=== PATIENT | male | born 1955 | race Caucasian/White ===

== ENCOUNTER 2017-09-20 15:01 | Inpatient (IN) | payer MEDICARE, OTHER ==
[~2017-09-20] VITALS: Ht 167.6 cm; Wt 90.7 kg
--- NOTE | 2017-09-20 15:28 | NUR ---
PT IS MEDICALLY CLEARED BY DR LACKEY.
[2017-09-20] MEDS ORDERED: ABILIFY (15:34)
[2017-09-20] MEDS ORDERED: THORAZINE (15:34)
[2017-09-20] MEDS ORDERED: METF500T4 PO (15:34)
[2017-09-20] MEDS ORDERED: LORA2TAB PO (15:34)
[2017-09-20] MEDS ORDERED: SINEMET PO (15:34)
--- NOTE | 2017-09-20 16:08 | NUR ---
Pt c/o having hallucinations, Dr Matta made aware and orders recieved.
[2017-09-20] MEDS ORDERED: HALOPERIDOL LACTATE 5 MG/1 ML VIAL IM ONE (16:15)
[2017-09-20] MEDS ORDERED: LORAZEPAM 2 MG/1 ML VIAL IM ONE (16:15)
[2017-09-20] MEDS ORDERED: HALOPERIDOL LACTATE 5 MG/1 ML VIAL ONE (16:25)
[2017-09-20] MEDS ORDERED: LORAZEPAM 2 MG/1 ML VIAL ONE (16:26)
--- NOTE | 2017-09-20 17:00 | NUR ---
Patient is resting comfortably in bed with eyes closed, NAD noted.
--- NOTE | 2017-09-20 18:04 | NUR ---
Pt transfered to [facility] via [facility].
[2017-09-20] MEDS ORDERED: MAG HYDROX/AL HYDROX/SIMETH 30 ML LIQUID UDC PO PRN (19:15)
[2017-09-20] MEDS ORDERED: MAGNESIUM HYDROXIDE 30 ML LIQUID UDC PO PRN (19:15)
[2017-09-20] MEDS ORDERED: DEXTROSE 50% 50 ML DISP.SYRIN IV PRN (20:00)
[2017-09-20] MEDS: BLOOD SUGAR DIAGNOSTIC 1 EACH STRIP VI SCH (20:35)
[2017-09-20 21:24] VITALS: BP 100/46
[2017-09-20] MEDS: CARBIDOPA/LEVODOPA 25-100MG TABLET PO SCH (21:48)
--- NOTE | 2017-09-20 22:00 | NUR ---
RECEIVED PATIENT IN HIS ROOM, HE WAS NOTED A/O X 2. DEPRESSED MOOD, BLUNTED AFFECT, HAVING FLIGH OF IDEAS. HE IS ABLE TO AMBULATE WITH STEADY GAIT AND ABLE TO MAKE HIS NEEDS KNOW. MEDICATION WERE RECONCILE. HE IS COMPLIANT WITH MEDICATION REGIMENT AT THIS TIME. UPON INTERVIEW, HE STATED THAT HE CONTINUE HAVING SI, HOWEVER, DENIES ANY SPECIFIC PLAN. HE STATED TO THIS PEDIATRIC ONCOLOGIST. "IF YOU HAVE AN INJECTION THAT YOU COULD GIVE ME AND PUT ME TO SLEEP FOREVER I COULD TAKE NOW". PATIENT WAS ABLE TO CONTRACT FOR SAFETY. PT STATED THAT HE SMOKES CIGARETTES, APPROX 5 CIGARETTES PER DAY. NICOTINE PATCH WAS ADDED TO HIS MEDICATION REGIMENT. SAFETY WAS EMPHASIS. WILL CONTINUE TO MONITOR CLOSELY Addendum: 09/21/17 at 0238 by KUSH BOATENG RN PATIENT ALSO STATED THAT HIS LAST ALCOHOLIC DRINK WAS THREE DAYS AGO. WILL CONTINUE TO MONITOR FOR ETOH WITHDRAWS SXS.
[2017-09-20] MEDS: INSULIN REGULAR, HUMAN 300 UNIT/3 ML VIAL SQ PRN (22:05)
--- NOTE | 2017-09-21 00:50 | NUR ---
PATIENT WOKE UP REQUESTING SOMETHING TO EAT AND DRINK. WATER, DIET SUGAR FREE JUICE, AND A TURKEY SANDWICH WAS GIVEN. HE WAS ALSO NOTED MILDLY AGITATIVE. ATIVAN 0.5MG PO PRN WAS GIVEN. WILL CONTINUE TO MONITOR CLOSELY.
[2017-09-21] MEDS: LORAZEPAM 0.5 MG TABLET PO PRN ×4 (00:52→20:19)
[2017-09-21] MEDS: TEMAZEPAM 7.5 MG CAPSULE PO PRN ×2 (01:53→21:42)
[2017-09-21] MEDS: ACETAMINOPHEN 325 MG TABLET PO PRN (01:54)
--- NOTE | 2017-09-21 01:55 | NUR ---
PATIENT WOKE UP STATING THAT HE WAS UNABLE TO SLEEP. TEMAZEPAM 7.5 MG PO PRN WAS GIVEN FOR INSOMNIA WITH TYLENOL 650 MG PO PRN FOR MILD GENERALIZED PAIN. WILL CONTINUE TO MONITOR.
--- NOTE | 2017-09-21 06:04 | NUR ---
PT VERBALIZED TO THE PHYSICAL THERAPY MANAGER WHILE BEING ASSISTED WITH MORNING SHOWER, THAT HE IS A DRUG ADDICT; THAT HE USES CRYSTAL METH, HEROINE AND ALCOHOL, UNSURE THE LAST TIME HE DRANK, MAYBE THREE DAYS AGO, WILL CONTINUE TO MONITOR PT CLOSELY FOR WITHDRAWAL SYMPTOMS.
[2017-09-21] MEDS: BLOOD SUGAR DIAGNOSTIC 1 EACH STRIP VI SCH ×4 (07:00→20:53)
[2017-09-21] MEDS: CARBIDOPA/LEVODOPA 25-100MG TABLET PO SCH ×2 (08:09→18:02)
[2017-09-21] MEDS: METFORMIN HCL 500 MG TABLET PO SCH ×2 (08:09→18:01)
[2017-09-21 08:15] LABS: BASOPHILS % (AUTO) 0.4 % (0.0-2.0); EOSINOPHILS # (AUTO) 0.1 K/uL (0.0-0.7); EOSINOPHILS % (AUTO) 1.3 % (0.0-7.0); HEMATOCRIT 41.4 % (36.7-47.1); HEMOGLOBIN 14.2 g/dL (12.5-16.3); LYMPHOCYTES # (AUTO) 1.9 K/uL (20.0-40.0); MEAN CORPUSCULAR HEMOGLOBIN 31.7 uug (23.8-33.4); MEAN CORPUSCULAR HGB CONC 34 g/dL (32.5-36.3); MEAN CORPUSCULAR VOLUME 92.3 fL (73.0-96.2); MONOCYTES # (AUTO) 0.4 K/uL (2.0-10.0); MONOCYTES % (AUTO) 5.5 % (0.0-11.0); NEUTROPHILS # (AUTO) 4.8 K/uL (1.8-8.9); NEUTROPHILS % (AUTO) 66.8 % (38.5-71.5); PLATELET COUNT (AUTO) 219 K/uL (152-348); RED BLOOD CELL COUNT(AUTO) 4.49 MIL/uL (4.06-5.63); WHITE BLOOD COUNT (AUTO) 7.1 K/uL (3.6-10.2)
[2017-09-21 08:28] VITALS: BP 142/62
[2017-09-21 08:35] LABS: THYROID STIMULATING HORMONE 0.952 mIU/mL (0.358-3.740)
[2017-09-21 08:53] LABS: BILIRUBIN,TOTAL 0.3 mg/dL (0.2-1.0); CREATININE 0.7 mg/dL (0.6-1.3); PHOSPHOROUS 3.2 mg/dL (2.5-4.9); POTASSIUM 3.9 mmol/L (3.5-5.1); TOTAL PROTEIN, SERUM 7.2 g/dL (6.4-8.2)
[2017-09-21 10:50] LABS: *BILIRUBIN,URIN NEGATIVE (NEGATIVE); *BLOOD, URINE NEGATIVE (NEGATIVE); *CLARITY,URINE CLEAR (CLEAR); *COLOR,URINE YELLOW (YELLOW); *KETONES,URINE NEGATIVE (NEGATIVE); *PROTEIN,URINE NEGATIVE (NEGATIVE); *UROBILINOGEN,URINE 0.2 E.U./dl (NORMAL); LEUKOCYTE ESTERASE ,URINE NEGATIVE (NEGATIVE); NITRITE, URINE NEGATIVE (NEGATIVE); UGLUCOSE NEGATIVE (NEGATIVE)
[2017-09-21 11:00] LABS: BACTERIA,URINE FEW /HPF (NONE SEEN); RBC,URINE 0-3 /HPF (0-3); SQUAMOUS EPITHELIAL CELL,UR FEW /HPF (NONE SEEN)
--- NOTE | 2017-09-21 12:04 | NUR ---
Initial DC Plan: Per patient, he ran away from his convalescent home and is now homeless. Patient stated he would like assistance finding a new SNF. SW will follow up with MD, patient, and patient's brother Watson [[phone]] to discuss most appropriate discharge plans. SW will form a safe and proper discharge.
--- NOTE | 2017-09-21 12:07 | NUR ---
Firearms Reporting: LUCIANA submitted Mental Health report to [facility] on 09/21.
[2017-09-21] MEDS: INSULIN REGULAR, HUMAN 300 UNIT/3 ML VIAL SQ PRN ×2 (13:44→20:55)
[2017-09-21] MEDS ORDERED: INFLUENZA VACCINE 2017-2018 0.5 ML DISP.SYRIN IM ONE (14:00)
[2017-09-21] MEDS: ARIPIPRAZOLE 5 MG TABLET PO SCH (14:48)
[2017-09-21] MEDS: chlorproMAZINE 25 MG TABLET PO SCH ×2 (14:48→18:02)
[2017-09-21 15:16] VITALS: BP 136/64
[2017-09-21] MEDS ORDERED: MAGNESIUM HYDROXIDE 30 ML LIQUID UDC PO PRN (17:00)
[2017-09-21] MEDS: THIAMINE HCL 100 MG TABLET PO SCH (17:00)
[2017-09-21] MEDS: FOLIC ACID 1 MG TABLET PO SCH (18:01)
[2017-09-21] MEDS: CEPHALEXIN MONOHYDRATE 500 MG CAPSULE PO SCH ×2 (18:01→21:31)
[2017-09-21] MEDS: DOCUSATE SODIUM 100 MG CAPSULE PO SCH ×2 (18:01→20:19)
[2017-09-21] MEDS: HYDROCODONE/APAP 5-325MG TABLET PO PRN (18:02)
[2017-09-21] MEDS: MULTIVITAMINS,THERAPEUTIC TABLET PO SCH (18:08)
--- NOTE | 2017-09-21 18:31 | NUR ---
Gps/Residential Instructor- patient kept asking for more foods, 1/2 of sandwich was given but kept askinfg for crakers, juice, more foods claimed still hungry. reviewed diet , informed needed to watch his blood sugar.
--- NOTE | 2017-09-21 20:25 | NUR ---
gps/journalists and other writers: patient angry chasing staff using rude language. ativan 0.5 mg po given.
--- NOTE | 2017-09-21 21:16 | NUR ---
GPS/NSG Patient first observed in activity room with hostile demeanor, patient requesting food every five minutes for the first hour of begining of shift. Patient approached by nurse to attempt to explain we must first follow diabetic protocol, obtain a blood sugar reading and then a snack would be provided, patient became angry and began to call nurse names, and inappropriate remarks were made towards staff. Patient redirected however patient remained angry. Will continue to monitor for behavior escalation and safety for patient, staff and peers.
[2017-09-22] MEDS: LORAZEPAM 0.5 MG TABLET PO PRN ×3 (02:36→14:51)
[2017-09-22] MEDS: HYDROCODONE/APAP 5-325MG TABLET PO PRN ×2 (02:37→23:15)
[2017-09-22] MEDS: CEPHALEXIN MONOHYDRATE 500 MG CAPSULE PO SCH ×3 (06:14→21:28)
[2017-09-22] MEDS: BLOOD SUGAR DIAGNOSTIC 1 EACH STRIP VI SCH ×4 (06:32→20:12)
--- NOTE | 2017-09-22 06:47 | NUR ---
GPS: REMAIN UNCOOPERATIVE WITH MEDICATIONS. STATED I DON'T WANT TAKE ANY PSYCH MEDICATIONS. BLOOD SUGAR 141 MG/DL THIS MORNING.COMPLIANT WITH AM PO MEDICATION. SLEPT 7 HRS THROUGH THE NIGHT AFTER RESTORIL 7.5 MG PO GIVEN.RESTING IN BED COMFORTABLY.
[2017-09-22 07:30] VITALS: BP 150/85
--- NOTE | 2017-09-22 07:35 | NUR ---
pt received in the tv room watching tv ,v/s are stable upon approach pt is nice ,no c/o pain at this time,breakfast served,
[2017-09-22] MEDS: INSULIN REGULAR, HUMAN 300 UNIT/3 ML VIAL SQ PRN ×4 (07:40→20:14)
[2017-09-22] MEDS: METFORMIN HCL 500 MG TABLET PO SCH ×2 (07:49→15:49)
[2017-09-22] MEDS: FOLIC ACID 1 MG TABLET PO SCH (08:00)
[2017-09-22] MEDS: CARBIDOPA/LEVODOPA 25-100MG TABLET PO SCH ×2 (08:00→16:02)
[2017-09-22] MEDS: THIAMINE HCL 100 MG TABLET PO SCH (08:00)
[2017-09-22] MEDS: DOCUSATE SODIUM 100 MG CAPSULE PO SCH ×2 (08:00→20:06)
[2017-09-22] MEDS: MULTIVITAMINS,THERAPEUTIC TABLET PO SCH (08:00)
[2017-09-22] MEDS: chlorproMAZINE 25 MG TABLET PO SCH (08:01)
[2017-09-22] MEDS: ARIPIPRAZOLE 5 MG TABLET PO SCH (08:01)
--- NOTE | 2017-09-22 09:20 | NUR ---
PT IS GETTING ANXIOUS ATIVAN 0.5 MG PO GIVEN PER MD ORDERS.
[2017-09-22] MEDS: OLANZAPINE 5 MG TABLET PO SCH (10:31)
[2017-09-22] MEDS: NICOTINE 14 MG/24HR PATCH TD SCH (10:49)
[2017-09-22] MEDS: AMLODIPINE 5 MG TABLET PO SCH (11:12)
--- NOTE | 2017-09-22 15:00 | NUR ---
PT REQUEST ATIVAN HE SAID HE IS FEELING ANXIOUS ,PER MD ORDERS ATIVAN 0.5 MG PO GIVEN.
[2017-09-22 15:28] VITALS: BP 136/80
[2017-09-22 20:00] VITALS: BP 132/83
[2017-09-22] MEDS: TEMAZEPAM 7.5 MG CAPSULE PO PRN (21:36)
--- NOTE | 2017-09-22 21:36 | NUR ---
GPS: PATIENT C/O INSOMNIA. RESTORIL 7.5 MG PO GIVEN.
--- NOTE | 2017-09-22 22:37 | NUR ---
GPS: PATIENT SLEEPING EYE CLOSE PRN EFFECTIVE.
--- NOTE | 2017-09-22 23:15 | NUR ---
GPS: PATIENT C/O BACK PAIN. NORCO 3/325 MG 1 TAB PO GIVEN.
--- NOTE | 2017-09-23 00:16 | NUR ---
GPS: PATIENT STATED I AM FEELING BETTER NOW. PRN FOR PAIN EFFECTIVE.
[2017-09-23] MEDS: CEPHALEXIN MONOHYDRATE 500 MG CAPSULE PO SCH ×3 (06:00→22:11)
--- NOTE | 2017-09-23 06:28 | NUR ---
GPS: REMAIN CALM AND COOPERATIVE WITH MEDICATIONS AND CARE. SHOWERED THIS MORNING. SLEPT 7 HRS THROUGH THE NIGHT AFTER RESTORIL 7.5 MG PO GIVEN. RESTING IN HIS ROOM COMFORTABLY.CONTINUE PLAN OF CARE.
[2017-09-23] MEDS: BLOOD SUGAR DIAGNOSTIC 1 EACH STRIP VI SCH ×4 (06:36→20:58)
[2017-09-23] MEDS: HYDROCODONE/APAP 5-325MG TABLET PO PRN ×4 (07:06→22:13)
[2017-09-23 07:30] VITALS: BP 115/79
[2017-09-23] MEDS: INSULIN REGULAR, HUMAN 300 UNIT/3 ML VIAL SQ PRN ×4 (08:12→22:18)
[2017-09-23] MEDS: NICOTINE 14 MG/24HR PATCH TD SCH (09:09)
[2017-09-23] MEDS: THIAMINE HCL 100 MG TABLET PO SCH (09:09)
[2017-09-23] MEDS: CARBIDOPA/LEVODOPA 25-100MG TABLET PO SCH ×2 (09:09→16:32)
[2017-09-23] MEDS: FOLIC ACID 1 MG TABLET PO SCH (09:10)
[2017-09-23] MEDS: OLANZAPINE 5 MG TABLET PO SCH (09:10)
[2017-09-23] MEDS: DOCUSATE SODIUM 100 MG CAPSULE PO SCH ×2 (09:10→19:59)
[2017-09-23] MEDS: AMLODIPINE 5 MG TABLET PO SCH (09:11)
[2017-09-23] MEDS: MULTIVITAMINS,THERAPEUTIC TABLET PO SCH (09:11)
[2017-09-23] MEDS: METFORMIN HCL 500 MG TABLET PO SCH ×2 (09:13→16:32)
[2017-09-23] MEDS: LORAZEPAM 0.5 MG TABLET PO PRN ×2 (11:36→16:59)
[2017-09-23 16:00] VITALS: BP 162/90
[2017-09-23] MEDS: ACETAMINOPHEN 325 MG TABLET PO PRN (19:59)
[2017-09-23 20:35] VITALS: BP 157/90
[2017-09-23] MEDS: TEMAZEPAM 7.5 MG CAPSULE PO PRN (22:13)
[2017-09-24] MEDS: LORAZEPAM 0.5 MG TABLET PO PRN ×3 (01:19→18:15)
[2017-09-24] MEDS: CEPHALEXIN MONOHYDRATE 500 MG CAPSULE PO SCH ×3 (06:12→21:36)
[2017-09-24] MEDS: BLOOD SUGAR DIAGNOSTIC 1 EACH STRIP VI SCH ×4 (06:41→20:14)
[2017-09-24 07:30] VITALS: BP 135/65
[2017-09-24 07:45] LABS: ALANINE AMINOTRANSFERASE 19 U/L (16-63); ALKALINE PHOSPHATASE 70 U/L (50-136); ASPARTATE AMINOTRANSFERASE 10 U/L (15-37); BILIRUBIN,TOTAL 0.5 mg/dL (0.2-1.0); CARBON DIOXIDE 23 mmol/L (21-32); CHLORIDE 103 mmol/L (98-107); CREATININE 0.6 mg/dL (0.6-1.3); GLUCOSE 136 mg/dL (74-106); MAGNESIUM 1.9 mg/dL (1.8-2.4); PHOSPHOROUS 4.1 mg/dL (2.5-4.9); POTASSIUM 3.8 mmol/L (3.5-5.1); TOTAL PROTEIN, SERUM 6.8 g/dL (6.4-8.2); UREA NITROGEN, BLOOD 12 mg/dL (7-18)
[2017-09-24 07:52] LABS: BASOPHILS % (AUTO) 0.5 % (0.0-2.0); EOSINOPHILS # (AUTO) 0.3 K/uL (0.0-0.7); EOSINOPHILS % (AUTO) 4.2 % (0.0-7.0); HEMATOCRIT 40.8 % (36.7-47.1); HEMOGLOBIN 13.8 g/dL (12.5-16.3); LYMPHOCYTES # (AUTO) 1.2 K/uL (20.0-40.0); LYMPHOCYTES % (AUTO) 18.3 % (20.5-51.5); MEAN CORPUSCULAR HEMOGLOBIN 31.3 uug (23.8-33.4); MEAN CORPUSCULAR HGB CONC 34 g/dL (32.5-36.3); MEAN CORPUSCULAR VOLUME 92.4 fL (73.0-96.2); MONOCYTES # (AUTO) 0.5 K/uL (2.0-10.0); MONOCYTES % (AUTO) 7.7 % (0.0-11.0); NEUTROPHILS # (AUTO) 4.6 K/uL (1.8-8.9); NEUTROPHILS % (AUTO) 69.3 % (38.5-71.5); PLATELET COUNT (AUTO) 191 K/uL (152-348); RED BLOOD CELL COUNT(AUTO) 4.42 MIL/uL (4.06-5.63); WHITE BLOOD COUNT (AUTO) 6.7 K/uL (3.6-10.2)
[2017-09-24] MEDS: CARBIDOPA/LEVODOPA 25-100MG TABLET PO SCH ×2 (08:08→17:04)
[2017-09-24] MEDS: DOCUSATE SODIUM 100 MG CAPSULE PO SCH ×2 (08:08→20:14)
[2017-09-24] MEDS: OLANZAPINE 5 MG TABLET PO SCH (08:08)
[2017-09-24] MEDS: MULTIVITAMINS,THERAPEUTIC TABLET PO SCH (08:08)
[2017-09-24] MEDS: FOLIC ACID 1 MG TABLET PO SCH (08:08)
[2017-09-24] MEDS: METFORMIN HCL 500 MG TABLET PO SCH ×2 (08:08→17:04)
[2017-09-24] MEDS: NICOTINE 14 MG/24HR PATCH TD SCH (08:08)
[2017-09-24] MEDS: AMLODIPINE 5 MG TABLET PO SCH ×2 (08:12→20:15)
[2017-09-24] MEDS: HYDROCODONE/APAP 5-325MG TABLET PO PRN ×3 (08:13→23:07)
[2017-09-24] MEDS: THIAMINE HCL 100 MG TABLET PO SCH (08:13)
[2017-09-24] MEDS: INSULIN REGULAR, HUMAN 300 UNIT/3 ML VIAL SQ PRN ×3 (11:58→20:21)
[2017-09-24] MEDS: ACETAMINOPHEN 325 MG TABLET PO PRN ×2 (12:15→20:14)
[2017-09-24 15:51] VITALS: BP 104/70
[2017-09-24] MEDS: METFORMIN HCL 850 MG TABLET PO SCH (17:08)
[2017-09-24 20:00] VITALS: BP 137/62
[2017-09-24] MEDS: TEMAZEPAM 7.5 MG CAPSULE PO PRN (21:36)
[2017-09-25] MEDS: LORAZEPAM 0.5 MG TABLET PO PRN ×3 (02:24→23:19)
[2017-09-25] MEDS: CEPHALEXIN MONOHYDRATE 500 MG CAPSULE PO SCH ×3 (05:29→22:05)
[2017-09-25] MEDS: HYDROCODONE/APAP 5-325MG TABLET PO PRN ×3 (05:30→23:45)
[2017-09-25] MEDS: BLOOD SUGAR DIAGNOSTIC 1 EACH STRIP VI SCH ×4 (06:35→20:21)
[2017-09-25 07:30] VITALS: BP 125/74
[2017-09-25] MEDS: AMLODIPINE 5 MG TABLET PO SCH ×2 (08:10→20:15)
[2017-09-25] MEDS: FOLIC ACID 1 MG TABLET PO SCH (08:11)
[2017-09-25] MEDS: THIAMINE HCL 100 MG TABLET PO SCH (08:11)
[2017-09-25] MEDS: MULTIVITAMINS,THERAPEUTIC TABLET PO SCH (08:11)
[2017-09-25] MEDS: DOCUSATE SODIUM 100 MG CAPSULE PO SCH ×2 (08:11→20:15)
[2017-09-25] MEDS: OLANZAPINE 5 MG TABLET PO SCH ×2 (08:12→20:15)
[2017-09-25] MEDS: NICOTINE 14 MG/24HR PATCH TD SCH (08:12)
--- NOTE | 2017-09-25 08:15 | NUR ---
Discharge Planning Note: Patient stated he does not want anyone contacting his family. SW will continue to follow up with patient to discuss discharge plans.
[2017-09-25] MEDS: METFORMIN HCL 850 MG TABLET PO SCH ×2 (08:23→16:52)
[2017-09-25] MEDS: CARBIDOPA/LEVODOPA 25-100MG TABLET PO SCH ×3 (08:24→17:05)
[2017-09-25] MEDS: INSULIN REGULAR, HUMAN 300 UNIT/3 ML VIAL SQ PRN ×3 (12:00→20:43)
[2017-09-25 17:21] VITALS: BP_SYST 102; BP_SYST 127; BP_DIAS 56; BP_DIAS 76
[2017-09-25 20:07] VITALS: BP 121/73
--- NOTE | 2017-09-25 21:57 | NUR ---
Patient received in activities room watching t.v. interacting with peers.Patient pleasant upon approach. Patient is unpredictable can be needy and demanding wanting instant gratification. Patient complaint with medication, accucheck 198 with sliding scale coverage given as ordered. Will continue with current treatment plan.
[2017-09-25] MEDS: TEMAZEPAM 7.5 MG CAPSULE PO PRN (22:05)
[2017-09-26] MEDS: CEPHALEXIN MONOHYDRATE 500 MG CAPSULE PO SCH ×3 (06:19→21:49)
[2017-09-26] MEDS: BLOOD SUGAR DIAGNOSTIC 1 EACH STRIP VI SCH ×4 (06:41→20:23)
[2017-09-26 08:00] VITALS: BP 146/76
[2017-09-26] MEDS: MULTIVITAMINS,THERAPEUTIC TABLET PO SCH (08:38)
[2017-09-26] MEDS: FOLIC ACID 1 MG TABLET PO SCH (08:38)
[2017-09-26] MEDS: CARBIDOPA/LEVODOPA 25-100MG TABLET PO SCH ×3 (08:38→16:38)
[2017-09-26] MEDS: DOCUSATE SODIUM 100 MG CAPSULE PO SCH ×2 (08:38→20:18)
[2017-09-26] MEDS: OLANZAPINE 5 MG TABLET PO SCH ×2 (08:39→20:18)
[2017-09-26] MEDS: NICOTINE 14 MG/24HR PATCH TD SCH (08:39)
[2017-09-26] MEDS: THIAMINE HCL 100 MG TABLET PO SCH (08:39)
[2017-09-26] MEDS: METFORMIN HCL 850 MG TABLET PO SCH ×2 (08:39→17:01)
[2017-09-26] MEDS: AMLODIPINE 5 MG TABLET PO SCH ×2 (08:39→20:18)
[2017-09-26] MEDS: HYDROCODONE/APAP 5-325MG TABLET PO PRN ×3 (09:08→23:44)
--- NOTE | 2017-09-26 09:10 | NUR ---
PATIENT REQUESTED FOR NORCO FOR GENERALISED PAIN MEDICATED ORDERED AND WILL CONTINUE TO OBSERVE.
--- NOTE | 2017-09-26 11:07 | NUR ---
Supportability Engineer Group Note: S: "I'm just gonna take it day by day and enjoy the sunlight." O: Pt dominated the session, but was able to be redirected. He made intense eye contact while speaking. Pt had lively, rapid, intense speech with a tangential thought process. Pt had insight into his diagnosis, but less insight into his culpability of his actions. A: Though pt states no present SI, pt could not articulate a plan to keep himself safe. Pt should explore coping skills when when he feels isolated or depressed. P: Attend group again the following day and utilize referrals for outpatient support.
[2017-09-26] MEDS: INSULIN REGULAR, HUMAN 300 UNIT/3 ML VIAL SQ PRN ×3 (11:44→20:42)
[2017-09-26 15:45] VITALS: BP 137/78
--- NOTE | 2017-09-26 18:00 | NUR ---
REMAIN ON PAIN MANAGEMENT ORDERED AND HELPFUL COMPLIANT WITH MEDICATIONS AND CARE WILL CONTINUE TO OBSERVE AND PROVIDE SAFE AND THERAPEUTIC ENVIRONMENT AT ALL TIMES.
[2017-09-26 19:00] VITALS: BP 138/73
[2017-09-26] MEDS: LORAZEPAM 0.5 MG TABLET PO PRN (21:49)
[2017-09-27] MEDS: CEPHALEXIN MONOHYDRATE 500 MG CAPSULE PO SCH ×3 (06:19→21:05)
[2017-09-27] MEDS: BLOOD SUGAR DIAGNOSTIC 1 EACH STRIP VI SCH ×4 (06:36→20:20)
[2017-09-27 07:30] VITALS: BP 129/84
[2017-09-27] MEDS: INSULIN REGULAR, HUMAN 300 UNIT/3 ML VIAL SQ PRN ×4 (08:09→21:03)
[2017-09-27] MEDS: METFORMIN HCL 850 MG TABLET PO SCH ×2 (08:11→17:33)
[2017-09-27] MEDS: MULTIVITAMINS,THERAPEUTIC TABLET PO SCH (08:11)
[2017-09-27] MEDS: CARBIDOPA/LEVODOPA 25-100MG TABLET PO SCH ×3 (08:11→16:22)
[2017-09-27] MEDS: FOLIC ACID 1 MG TABLET PO SCH (08:11)
[2017-09-27] MEDS: NICOTINE 14 MG/24HR PATCH TD SCH (08:11)
[2017-09-27] MEDS: AMLODIPINE 5 MG TABLET PO SCH ×2 (08:11→20:13)
[2017-09-27] MEDS: OLANZAPINE 5 MG TABLET PO SCH ×2 (08:11→20:13)
[2017-09-27] MEDS: THIAMINE HCL 100 MG TABLET PO SCH (08:12)
[2017-09-27] MEDS: DOCUSATE SODIUM 100 MG CAPSULE PO SCH ×2 (08:12→20:12)
[2017-09-27] MEDS: HYDROCODONE/APAP 5-325MG TABLET PO PRN ×3 (09:15→22:25)
[2017-09-27] MEDS: LORAZEPAM 0.5 MG TABLET PO PRN ×2 (13:49→19:57)
--- NOTE | 2017-09-27 14:59 | NUR ---
Referred by Nursing to see patient as patient non compliance with current diet restrictions ([id number] diet). Spoke with patient and informed patient about his diet, patient non compliance with current diet. Obtained food preferences will honor as comply with current diet. Patient states feels hungry , will send double protein entree. Addendum: 09/27/17 at [address] Amended: Links added.
[2017-09-27 15:42] VITALS: BP 135/85
[2017-09-27 19:54] VITALS: BP 138/78
--- NOTE | 2017-09-27 22:00 | NUR ---
received to care, watching tv with peers, pleasant upon approach. compliant with medications and staff direction. PRN ativan given for anxiety at 1956. by 2099, he stated good relief from med. as of 2199, he is awake, lying in bed. no distress noted. will continue to monitor closely.
--- NOTE | 2017-09-27 22:25 | NUR ---
PRN norco given for 8 lower back pain. will continue to monitor closely.
--- NOTE | 2017-09-27 23:00 | NUR ---
appears to be asleep. no distress noted.
[2017-09-28] MEDS: LORAZEPAM 0.5 MG TABLET PO PRN (02:40)
--- NOTE | 2017-09-28 02:40 | NUR ---
pt is now awake. states he is anxious because he states his cousin yesterday, and that that was the cousin, whose house he was going to stay at. he states that he now has nowhere to go, and will require placement. (he did not mention any of this last night, although he was observed talking on the telephone, several times) he was told by this health technical writer, that this would be passed on to the oncoming nurse, and rn social work, in the AM. PRN ativan was given, at this time, and he went back to bed.
[2017-09-28] MEDS: CEPHALEXIN MONOHYDRATE 500 MG CAPSULE PO SCH (06:36)
[2017-09-28] MEDS: HYDROCODONE/APAP 5-325MG TABLET PO PRN ×2 (06:36→12:54)
[2017-09-28] MEDS: BLOOD SUGAR DIAGNOSTIC 1 EACH STRIP VI SCH ×2 (06:38→11:23)
--- NOTE | 2017-09-28 06:48 | NUR ---
slept 8 hours
[2017-09-28 07:30] VITALS: BP 141/89
[2017-09-28] MEDS: MULTIVITAMINS,THERAPEUTIC TABLET PO SCH (08:02)
[2017-09-28] MEDS: FOLIC ACID 1 MG TABLET PO SCH (08:02)
[2017-09-28] MEDS: NICOTINE 14 MG/24HR PATCH TD SCH (08:02)
[2017-09-28] MEDS: THIAMINE HCL 100 MG TABLET PO SCH (08:02)
[2017-09-28] MEDS: DOCUSATE SODIUM 100 MG CAPSULE PO SCH (08:02)
[2017-09-28] MEDS: OLANZAPINE 5 MG TABLET PO SCH (08:02)
[2017-09-28] MEDS: METFORMIN HCL 850 MG TABLET PO SCH (08:02)
[2017-09-28] MEDS: CARBIDOPA/LEVODOPA 25-100MG TABLET PO SCH ×2 (08:02→12:11)
[2017-09-28 08:04] VITALS: BP 144/89
[2017-09-28] MEDS: AMLODIPINE 5 MG TABLET PO SCH (08:04)
[2017-09-28] MEDS: INSULIN REGULAR, HUMAN 300 UNIT/3 ML VIAL SQ PRN (11:45)
--- NOTE | 2017-09-28 12:07 | NUR ---
Discharge Note: Patient is refusing SNF placement and will be discharged home to his cousin [[address] [place] [address]; [phone]] via taxi. Patient refused to give contact information for his cousin. Patient is aware and agreeable with discharge plans. Patient was provided with a list of Medicare PCP Referrals. The list includes: Dr. Jose Juan Barboza [[address] [place] [address] ]; Dr. Luma Shukla [[address] [place] [address]; ]; Dr. Antwon Davies [[address] [place] [address]; ]; Dr. Leanne Servin [[address] [place] [address]; ]; Dr. Gerry Almaraz [[address] [place] [address]; ]; and Dr. Dylon Lowery [[address] [place] [address]; ]. Patient was also given a list of Medicare-accepting Psychiatrists with whom to follow-up. The list includes: Dr. Abhinav White [[address] [place] [address]; ]; Dr. Jesus Retana [[address] [place] [address]; [address] [place] [address]; ]; Dr. Epi Haji [[address] [place] [address]; ]; and Dr. Leatha Lafleur [[address] [place] [address]; ]. Patient was provided with the homeless fdc packet, which includes a list of emergency shelters, housing resources, drop in centers, and showers/hot meals centers. This also included the Homeless Information Hotline (999)-659-9977 or 933, [employer] and [employer] (091)- [phone], and the [facility] [phone]. Patient was provided with outpatient mental health resources to [facility] , [facility] , and the [place] [facility] . Patient was provided with a brief substance abuse intervention and referred to [facility] , [facility] , and [facility] . For smoking cessation, patient was referred to [employer] 304-LUNGUSA and [employer] [phone].
--- NOTE | 2017-09-28 13:53 | NUR ---
Pt stated he does not need Medical prescriptions because he has all the medications "at my cousins house."
--- NOTE | 2017-09-28 14:30 | NUR ---
Pt left unit on wheelchair accompanied by CELERY WRAPPER to taxi with voucher. Pt calm and cooperative. Able to make all needs known. Denies hallucinations. Denies Si and Hi. Calm and cooperative. V/S stable. left with all noted belongings and paperwork. In no acute distress
== END 2017-09-28 14:30 | disposition home or self-care (01) | DRG 885 ==
LOC: ER 15:01 → GPS 17:59
PROVIDERS: ADMIT Psychiatry & Neurology Psychiatry; ATTEND Internal Medicine
DX: F20.0 Paranoid schizophrenia (principal); E11.65 Type 2 diabetes mellitus with hyperglycemia; G20 Parkinson's disease; R45.851 Suicidal ideations; E87.1 Hypo-osmolality and hyponatremia; N39.0 Urinary tract infection, site not specified; Z59.0 Homelessness; F10.20 Alcohol dependence, uncomplicated; Y90.9 Presence of alcohol in blood, level not specified; Z91.5 Personal history of self-harm; M06.9 Rheumatoid arthritis, unspecified; G89.29 Other chronic pain; Z74.09 Other reduced mobility; S27 Injury of other and unspecified intrathoracic organs; W34.00XS Accidental discharge from unspecified firearms or gun, sequela; F15.10 Other stimulant abuse, uncomplicated; F17.210 Nicotine dependence, cigarettes, uncomplicated; E66.3 Overweight; Z68.32 Body mass index [BMI] 32.0-32.9, adult; I10 Essential (primary) hypertension; K59.00 Constipation, unspecified; F31.9 Bipolar disorder, unspecified
CPT/HCPCS: 36415; 82306; 83735; 84100; 84443; 85025; 87086; 90686; A4663; J1630; J1815; J2060; Q0161

== ENCOUNTER 2019-10-29 16:33 | Inpatient (IN) | payer MEDICARE, OTHER ==
[~2019-10-29] VITALS: Ht 167.6 cm; Wt 91.3 kg
--- NOTE | 2019-10-29 17:30 | NUR ---
Patient is medically cleared again by our ER Doctor Paxton for psych admission.
--- NOTE | 2019-10-29 17:33 | NUR ---
Patient is accepted to geriatric mental health unit before coming to our ER department. Medically cleared by [facility] and placed on 5150 psych HOLD for danger to self since 0301am 10/29/2019. Patient will be under the care of Dr. Mc & [facility] hospitalist Mata Chandra. Belongings List completed. MRSA swab sent to lab.
--- NOTE | 2019-10-29 17:35 | NUR ---
perineal hygiene provided for pt.
[2019-10-29] MEDS ORDERED: ACETAMINOPHEN 325 MG TABLET PO PRN (18:45)
[2019-10-29] MEDS ORDERED: BLOOD SUGAR DIAGNOSTIC 1 EACH STRIP VI ONE (18:45)
--- NOTE | 2019-10-29 18:45 | NUR ---
Admission Note; Patient is a 64 year old male, brought in to hospital by ambulance from [facility] admitted on a 5150 for SI. Per hold patient was found on the ground behind a [employer] store intoxicated. Patient verbalized having access to a gun and wanting to shoot himself. Upon face to face evaluation, patient had noticeable tremors, and is unable so sign paperwork. Alert and oriented x2-3, Patient is demanding and needy. Multiple request for food and medications. Patient claims to be homeless and barley able to stand. Admits to drinking a fifth of Vodka everyday as well as usage of Methamphetamines. Speech slightly slurred and inappropriate responses made during the conversation. VS are stable, oriented to environment, informed of the advisement and copy received. Patients right handbook at the bedside. Patient verbalized understanding of the plan of care at this time..No acute issues noted. Monitoring closely for safety and Suicidal precautions are in place.
[2019-10-29] MEDS ORDERED: INFLUENZA VACCINE 2019-2020 0.5 ML DISP.SYRIN IM ONE (19:30)
[2019-10-29] MEDS ORDERED: PNEUMOCOCCAL 23-VAL P-SAC VAC 0.5 ML VIAL IM ONE (19:30)
[2019-10-29 20:00] VITALS: BP 171/60
[2019-10-29] MEDS: ATORVASTATIN 40 MG TABLET PO SCH (20:22)
[2019-10-29] MEDS: LORAZEPAM 1 MG TABLET PO PRN (20:22)
--- NOTE | 2019-10-29 20:30 | NUR ---
GPS: Pt.is anxious,needy,uncooperative at times but re-directable. Denies feeling suicidal when asked. Stated" I just said all those things so i can have a roof over my head". "I've been homeless for about 3-4 months now. Pt.contracts for safety at this time. Needs attended. Will continue to monitor. Medicated with Ativan 1mg PO. Safety emphasized.
[2019-10-29 21:05] VITALS: BP 146/64
--- NOTE | 2019-10-30 01:00 | NUR ---
Social Work Individual Therapy: fruit and vegetable factory worker met with patient for brief counseling to address patients chemical dependence. Patient stated that he started to drink at the age of 20. This fha underwriter asked if he has motivation to change he stated that "living on the streets make him drink". This fha underwriter assessed for patients understanding of the use of drugs and alcohol and he was able to state the negative/positive effects of it. Patient was able to accept support and guidance from this fha underwriter. This fha underwriter was able to provide emotional support and actively listened. fruit and vegetable factory worker will give patient resources such as [facility]; ([phone]), [facility]; ([phone]), [facility]; ([phone]). fruit and vegetable factory worker attempted to identify patients support system he was able to state that he has no support but his brother Watson is sometimes involved to help.
[2019-10-30] MEDS: TEMAZEPAM 7.5 MG CAPSULE PO PRN (01:47)
[2019-10-30 07:05] LABS: BILIRUBIN,TOTAL 0.9 mg/dL (0.2-1.0); CREATININE 0.9 mg/dL (0.6-1.3); TOTAL PROTEIN, SERUM 7.7 g/dL (6.4-8.2)
[2019-10-30 07:30] VITALS: BP 139/76
[2019-10-30] MEDS ORDERED: PNEUMOCOCCAL 23-VAL P-SAC VAC 0.5 ML VIAL IM ONE (09:00)
[2019-10-30] MEDS ORDERED: CARBIDOPA/LEVODOPA 10-100MG TABLET PO SCH (09:00)
[2019-10-30] MEDS ORDERED: Medication Not On Formulary EA (Multivitamins (Multivitamin) 1 EACH) PO SCH (09:00)
[2019-10-30] MEDS ORDERED: INFLUENZA VACCINE 2019-2020 0.5 ML DISP.SYRIN IM ONE (09:00)
[2019-10-30] MEDS ORDERED: Medication Not On Formulary EA (Atorvastatin Calcium (Lipitor) 80 MG) PO SCH (09:00)
[2019-10-30] MEDS: ASPIRIN 81 MG TAB.CHEW PO SCH (09:04)
[2019-10-30] MEDS: FOLIC ACID 1 MG TABLET PO SCH (09:04)
[2019-10-30] MEDS: MULTIVITAMINS,THERAPEUTIC TABLET PO SCH (09:04)
[2019-10-30] MEDS: THIAMINE HCL 100 MG TABLET PO SCH (09:05)
[2019-10-30] MEDS: METFORMIN HCL 500 MG TABLET PO SCH ×2 (09:05→17:10)
[2019-10-30] MEDS: CARBIDOPA/LEVODOPA 25-100MG TABLET PO SCH ×3 (09:09→17:10)
--- NOTE | 2019-10-30 11:31 | NUR ---
Social Work Substance Abuse Intervention: Patient was provided with a brief substance abuse intervention and referred to [facility] , [facility] ([phone]), and [facility] ([phone]).
[2019-10-30] MEDS: CLONAZEPAM 0.5 MG TABLET PO SCH ×2 (12:16→18:37)
--- NOTE | 2019-10-30 12:57 | NUR ---
Social Work Initial Discharge Plan: Patient is homeless and was living on the streets. Per patient, he would want this telegraphic typewriter repairer to find him a fpc. social worker assistant will work with the patient and MD regarding appropriate discharge planning. social worker assistant will form a safe and proper discharge.
--- NOTE | 2019-10-30 14:35 | NUR ---
Social Work Family Contact: custodial maintenance worker contacted patient's brother Watson ([phone]) and was unable to leave a voicemail due to memory being full. This copywriter will attempt again.
[2019-10-30] MEDS: LORAZEPAM 1 MG TABLET PO PRN ×2 (15:09→20:04)
[2019-10-30 16:00] VITALS: BP 157/55
--- NOTE | 2019-10-30 16:15 | NUR ---
Gps/[place] Line Attendant- Kept coming to Nurses station, asking if his medication ofor anxiety is due, reviewed and kept reminding patient due time. Encouraged to stay in the activity room .
--- NOTE | 2019-10-30 17:31 | NUR ---
Gps/Nursing Service Director- Patient does not remember receiving any medications while he was in the dinning room, informed reminded patient her was so tremulous unable to hold bottled water., claimed 2 mediciations not enough he wants injections stronger medications so he will sleep. Encouraged to talk to his Psychiatrist tomorrow. Patient noted extremely needy , wants to be fed r/t to > tremulous arms/hands. Also requesting more foods claimed they always give him "dog food ". Instructed to talk to Stockfeed Miller when they do rounds in am. Assisted with his bottled water.
[2019-10-30] MEDS: ACETAMINOPHEN 325 MG TABLET PO PRN (18:36)
--- NOTE | 2019-10-30 18:59 | NUR ---
Gps/Film Loader- Patient requesting more medications, claimed why his roommate sleeping most of the afternoon and he's not, wants more medications, explained to patient , they have diffirent dx.redirected back to his room.
[2019-10-30] MEDS: ATORVASTATIN 40 MG TABLET PO SCH (20:04)
[2019-10-30 20:18] VITALS: BP 166/81
[2019-10-30] MEDS ORDERED: TRAZODONE 50 MG TABLET NG STA (21:13)
[2019-10-30] MEDS: chlorproMAZINE 25 MG TABLET PO SCH (22:09)
[2019-10-31] MEDS ORDERED: Z GUARD REMEDY PASTE 57 GM TUBE TOP PRN (04:00)
[2019-10-31 07:30] VITALS: BP 144/80
[2019-10-31] MEDS: ASPIRIN 81 MG TAB.CHEW PO SCH (08:41)
[2019-10-31] MEDS: CARBIDOPA/LEVODOPA 25-100MG TABLET PO SCH ×3 (08:41→16:02)
[2019-10-31] MEDS: MULTIVITAMINS,THERAPEUTIC TABLET PO SCH (08:41)
[2019-10-31] MEDS: FOLIC ACID 1 MG TABLET PO SCH (08:41)
[2019-10-31] MEDS: METFORMIN HCL 500 MG TABLET PO SCH ×2 (08:41→17:03)
[2019-10-31] MEDS: THIAMINE HCL 100 MG TABLET PO SCH (08:42)
[2019-10-31] MEDS: chlorproMAZINE 25 MG TABLET PO SCH ×3 (09:03→16:03)
--- NOTE | 2019-10-31 13:12 | NUR ---
Social Work Coordination of Care: putty worker faxed H & P psychiatric notes and progress notes to [facility] from [facility] and will review clinicals.
--- NOTE | 2019-10-31 13:56 | NUR ---
Gps/Foundation Relations Manager- Verbalized frustration, claimed he was left in the bathroom and no one assist him in wipping his butt or assist in his hygiene. Informed pt. staff encouraged patient to do the best thing they can, encouraged independence, Patient kept repeating no one help him. Needy, and gets argumentative with staff when redirected.Encouraged attending his group therapy
[2019-10-31 15:16] VITALS: BP 172/113
[2019-10-31] MEDS: LORAZEPAM 1 MG TABLET PO PRN (16:03)
--- NOTE | 2019-10-31 17:30 | NUR ---
Gps/Sports Internship- Patient was encouraged to assist self with his simple needs, i.e, providing simple hygiene . Patient claimed ,he is in the hospital and he needs to be taken care of..Uses wheel chair to roam around the unit.
[2019-10-31] MEDS: Z GUARD REMEDY PASTE 57 GM TUBE TOP PRN (18:25)
--- NOTE | 2019-10-31 18:53 | NUR ---
PT NOTED NEEDY, INTRUSIVE, AND DEMANDING AT TIMES. FREQUENTLY MAKING MULTIPLE ARBITRARY COMPLAINTS, AND WHEN NEEDS MET, WILL COMPLAIN OF OTHERS THINGS. PT ALSO MAKES QUITE INAPPROPRIATE STATEMENTS SUCH "I DON'T KNOW HOW WOMEN BRING BABIES INTO THE WORLD WITH SO MUCH PAIN. THESE BITCHES ARE ALL A PAIN IN THE ASS ANYWAY. IT MUST BE BECAUSE THEY ALL LIKE TO FUCK". PT FREQUENTLY NEEDS REDIRECTION.
[2019-10-31] MEDS: ACETAMINOPHEN 325 MG TABLET PO PRN (18:55)
[2019-10-31] MEDS: ATORVASTATIN 40 MG TABLET PO SCH (20:03)
[2019-10-31] MEDS: TRAZODONE 100 MG TABLET PO SCH (20:03)
[2019-10-31 20:10] VITALS: BP 128/85
[2019-10-31] MEDS ORDERED: TRAZODONE 100 MG TABLET NG SCH (21:00)
[2019-11-01] MEDS: TEMAZEPAM 7.5 MG CAPSULE PO PRN (00:09)
[2019-11-01] MEDS: Z GUARD REMEDY PASTE 57 GM TUBE TOP PRN (06:44)
[2019-11-01 07:30] VITALS: BP 137/71
[2019-11-01] MEDS: LORAZEPAM 1 MG TABLET PO PRN ×2 (08:23→17:56)
[2019-11-01] MEDS: METFORMIN HCL 500 MG TABLET PO SCH ×2 (08:37→17:08)
[2019-11-01] MEDS: chlorproMAZINE 25 MG TABLET PO SCH ×3 (08:39→17:08)
[2019-11-01] MEDS: MULTIVITAMINS,THERAPEUTIC TABLET PO SCH (08:39)
[2019-11-01] MEDS: FOLIC ACID 1 MG TABLET PO SCH (08:39)
[2019-11-01] MEDS: ASPIRIN 81 MG TAB.CHEW PO SCH (08:39)
[2019-11-01] MEDS: CARBIDOPA/LEVODOPA 25-100MG TABLET PO SCH ×3 (08:39→17:08)
[2019-11-01] MEDS: THIAMINE HCL 100 MG TABLET PO SCH (08:39)
[2019-11-01] MEDS: MUPIROCIN 2% OINT 22 GM TUBE NS SCH ×2 (09:24→21:14)
--- NOTE | 2019-11-01 10:30 | NUR ---
Received patient transferred from [facility]. Stable condition. no signs of distress. Cooperative, pleasant. 1:1 sitter at bedside for safety. No signs of aggression. Compliant with medical care and medication regimen. Will continue to monitor throughout shift. Safety measures implemented.
[2019-11-01 16:00] VITALS: BP 136/78
--- NOTE | 2019-11-01 18:36 | NUR ---
Patient resting comfortably in bed at this time. Tolerated lunch well. 1:1 sitter at bedside for safety. Suicide precautions implemented. Safety precautions implemented. Denies any pain or SOB. Compliant with medical care and medication regimen. Patient has been pleasant. Will continue to monitor until end of shift.
[2019-11-01 20:00] VITALS: BP 127/73
--- NOTE | 2019-11-01 20:00 | NUR ---
Received patient in bed awake, A&Ox2. Not in distress, patient calm and answers questions appropriately. w/ 1:1 sitter at bedside for safety. No SI but noted feeling depressed. Patient also asking to call his brother.
[2019-11-01] MEDS: ATORVASTATIN 40 MG TABLET PO SCH (21:14)
[2019-11-01] MEDS: TRAZODONE 100 MG TABLET PO SCH (21:14)
--- NOTE | 2019-11-02 06:45 | NUR ---
Patient slept for 7hrs. Remained calm and cooperative throughout shift. No SI. Cont w/ 1:1 sitter for safety. All needs attended. Will endorse accordingly
--- NOTE | 2019-11-02 07:30 | NUR ---
PATIENT CALM AND COMFORTABLE THROUGH OUT SHIFT WITH NO SIGNS OF DISTRESS; PATIENT WILL CONTINUE TO BE MONITORED . PATIENT WITH 1:1 SITTER.
[2019-11-02 08:00] VITALS: BP 142/75
[2019-11-02] MEDS: MULTIVITAMINS,THERAPEUTIC TABLET PO SCH (08:18)
[2019-11-02] MEDS: chlorproMAZINE 25 MG TABLET PO SCH ×3 (08:19→18:04)
[2019-11-02] MEDS: METFORMIN HCL 500 MG TABLET PO SCH ×2 (08:19→18:04)
[2019-11-02] MEDS: THIAMINE HCL 100 MG TABLET PO SCH (08:19)
[2019-11-02] MEDS: CARBIDOPA/LEVODOPA 25-100MG TABLET PO SCH ×3 (08:19→18:04)
[2019-11-02] MEDS: FOLIC ACID 1 MG TABLET PO SCH (08:19)
[2019-11-02] MEDS: ASPIRIN 81 MG TAB.CHEW PO SCH (08:19)
[2019-11-02] MEDS: MUPIROCIN 2% OINT 22 GM TUBE NS SCH ×2 (08:21→20:03)
[2019-11-02 15:54] VITALS: BP 148/68
--- NOTE | 2019-11-02 18:58 | NUR ---
PATIENT WITH 1:1 SITTER ; PATIENT CALM AND COMFORTABLE ; PATIENT MEDICATION COMPLIANT AND STABLE VITAL SIGNS.
[2019-11-02 19:35] VITALS: BP 153/70
[2019-11-02] MEDS: TRAZODONE 100 MG TABLET PO SCH (20:03)
[2019-11-02] MEDS: ACETAMINOPHEN 325 MG TABLET PO PRN (20:03)
[2019-11-02] MEDS: LORAZEPAM 1 MG TABLET PO PRN (20:03)
[2019-11-02] MEDS: ATORVASTATIN 40 MG TABLET PO SCH (20:03)
[2019-11-02] MEDS: TEMAZEPAM 7.5 MG CAPSULE PO PRN (22:13)
--- NOTE | 2019-11-03 05:51 | NUR ---
Pt slept for 6 hours throughout shift. 1:1 sitter remained at bedside. When awake, pt is alert and verbally responsive. Acknowledges previous Suicidal Ideation, but verbalizes that he does not have any feelings or suicidal intent. C/O abdominal pain, with episodes of vomiting last night. [employer] PARTS AND SERVICE MANAGER contacted and received new order for KUB. Aspiration precautions maintained. Pain managed with Tylenol. Administered x1 dose of PRN Temazepam for sleep. Pt had x 3 BM with multiple urine output. Good perineal care rendered by sitter. All needs attended. Sleeping at this time. Will continue to monitor and endorse accordingly.
[2019-11-03] MEDS: METFORMIN HCL 500 MG TABLET PO SCH ×2 (08:23→17:38)
[2019-11-03] MEDS: chlorproMAZINE 25 MG TABLET PO SCH ×3 (08:24→17:38)
[2019-11-03] MEDS: THIAMINE HCL 100 MG TABLET PO SCH (08:24)
[2019-11-03] MEDS: CARBIDOPA/LEVODOPA 25-100MG TABLET PO SCH ×3 (08:24→17:38)
[2019-11-03] MEDS: ASPIRIN 81 MG TAB.CHEW PO SCH (08:24)
[2019-11-03] MEDS: MULTIVITAMINS,THERAPEUTIC TABLET PO SCH (08:24)
[2019-11-03] MEDS: FOLIC ACID 1 MG TABLET PO SCH (08:24)
[2019-11-03] MEDS: MUPIROCIN 2% OINT 22 GM TUBE NS SCH ×2 (08:25→20:21)
[2019-11-03 08:38] VITALS: BP 115/67
--- NOTE | 2019-11-03 10:02 | NUR ---
Social Work Individual Therapy: solid waste collection worker met with patient for brief counseling to address patients chemical dependeny. Patient was able to maintain meaningful conversation. Patient stated that he is off drugs and has not been drinking for a while. Patient stated that he began drinking at an early age and that it all started from "influence from his friends in high school". He stated that he just wanted to fit in. Per patient, he stated that he is able to control himself. solid waste collection worker actively listened, provided guidance, and educated on the negative effects on drinking and abusing drugs. solid waste collection worker will give patient resources such as [facility]; ([phone]), [facility]; ([phone]), [facility]; ([phone]). solid waste collection worker attempted to identify patients support system he was unable to identify, however; his support system is his brother is his social support but has minimal conversation.
[2019-11-03 15:43] VITALS: BP 130/61
--- NOTE | 2019-11-03 18:22 | NUR ---
PATIENT WITH 1:1 SITTER THROUGH OUT SHIFT WITH NO SIGNS OF DISTRESS; PATIENT MEDICATION COMPLIANT; NO OUTBURST OF ANGER ; PATIENT CALM AND COMFORTABLE THROUGH OUT SHIFT.
[2019-11-03 19:52] VITALS: BP 126/70
[2019-11-03] MEDS: ATORVASTATIN 40 MG TABLET PO SCH (20:21)
[2019-11-03] MEDS: TRAZODONE 100 MG TABLET PO SCH (20:21)
[2019-11-03] MEDS: TEMAZEPAM 7.5 MG CAPSULE PO PRN (22:29)
[2019-11-04] MEDS: LORAZEPAM 1 MG TABLET PO PRN (00:21)
--- NOTE | 2019-11-04 06:35 | NUR ---
Patient slept for 4 hours during shift. Contact precautions maintained. 1:1 sitter stayed at bedside. Remained safe during shift. all medications given as ordered. Will continue to monitor and endorse accordingly.
[2019-11-04 08:00] VITALS: BP 125/80
--- NOTE | 2019-11-04 08:23 | NUR ---
Social Work PC Hearing Notification: printing worker supervisor contacted patient's brother Watson, ([phone]) and notified patients probable cause of hearing today through voicemail.
[2019-11-04] MEDS: CARBIDOPA/LEVODOPA 25-100MG TABLET PO SCH ×3 (10:09→16:36)
[2019-11-04] MEDS: METFORMIN HCL 500 MG TABLET PO SCH ×2 (10:09→17:01)
[2019-11-04] MEDS: ASPIRIN 81 MG TAB.CHEW PO SCH (10:10)
[2019-11-04] MEDS: MULTIVITAMINS,THERAPEUTIC TABLET PO SCH (10:10)
[2019-11-04] MEDS: THIAMINE HCL 100 MG TABLET PO SCH (10:10)
[2019-11-04] MEDS: chlorproMAZINE 25 MG TABLET PO SCH ×3 (10:11→16:36)
[2019-11-04] MEDS: FOLIC ACID 1 MG TABLET PO SCH (10:13)
[2019-11-04] MEDS: MUPIROCIN 2% OINT 22 GM TUBE NS SCH ×2 (10:13→21:52)
--- NOTE | 2019-11-04 13:12 | NUR ---
Received patient in stable condition from medical-surgical unit. Patient accompanied by RN and transferred in hospital bed. patient oriented to unit rules and policies, oriented to his assigned room.
--- NOTE | 2019-11-04 16:49 | NUR ---
patient is calm, cooperative, and redirectable. patient is visible on the unit and has appropriate interaction with others. patient denies SI/HI, denies AH/VH. he is able to verbalize his needs to staff. Able to ambulate independently, perform self care and ADL's independently. Patient provided with education about impulse control, verbalize understanding. He is medication adherent, no adverse reaction noted.
[2019-11-04 19:48] VITALS: BP 122/74
[2019-11-04] MEDS: ATORVASTATIN 40 MG TABLET PO SCH (20:10)
[2019-11-04] MEDS: TRAZODONE 100 MG TABLET PO SCH (20:10)
[2019-11-04] MEDS: TEMAZEPAM 7.5 MG CAPSULE PO PRN (23:25)
[2019-11-04] MEDS: ACETAMINOPHEN 325 MG TABLET PO PRN (23:25)
[2019-11-05] MEDS: LORAZEPAM 1 MG TABLET PO PRN (00:50)
[2019-11-05] MEDS: CLONAZEPAM 0.5 MG TABLET PO SCH (02:28)
--- NOTE | 2019-11-05 06:17 | NUR ---
Received Pt in the day room watching TV, A+Ox3. Pt is needy, demanding, manipulative, gamey, and labile. Pt is focused on snacks and attempts to staff split when limits are set. Pt becomes agitated and aggressive when he does not get what he wants immediately. Pt had multiple perceived somatic complaints unrelieved by by any pharmaceutical or non-pharmaceutical interventions administered. Appeared to be narcotic-seeking, complaining multiple times that he got "the good stuff on the other unit. I want Dilaudid." Pt yelled and screamed at staff when educated and redirected. Pt denies SI/SI/AH/VH. VS stable, denies pain.
[2019-11-05 07:08] LABS: BASOPHILS % (AUTO) 0.2 % (0.0-2.0); EOSINOPHILS # (AUTO) 0.1 K/uL (0.0-0.7); EOSINOPHILS % (AUTO) 1.6 % (0.0-7.0); HEMATOCRIT 38.9 % (36.7-47.1); HEMOGLOBIN 13.3 g/dL (12.5-16.3); LYMPHOCYTES # (AUTO) 1.3 K/uL (20.0-40.0); LYMPHOCYTES % (AUTO) 20.1 % (20.5-51.5); MEAN CORPUSCULAR HEMOGLOBIN 30.8 uug (23.8-33.4); MEAN CORPUSCULAR HGB CONC 34 g/dL (32.5-36.3); MEAN CORPUSCULAR VOLUME 90.3 fL (73.0-96.2); MONOCYTES # (AUTO) 0.5 K/uL (2.0-10.0); MONOCYTES % (AUTO) 7.7 % (0.0-11.0); NEUTROPHILS # (AUTO) 4.5 K/uL (1.8-8.9); NEUTROPHILS % (AUTO) 70.4 % (38.5-71.5); PLATELET COUNT (AUTO) 203 K/uL (152-348); WHITE BLOOD COUNT (AUTO) 6.3 K/uL (3.6-10.2)
[2019-11-05 07:30] VITALS: BP 145/86
[2019-11-05 07:30] LABS: THYROID STIMULATING HORMONE 1.136 mIU/mL (0.358-3.740)
[2019-11-05 07:56] LABS: BILIRUBIN,TOTAL 0.4 mg/dL (0.2-1.0); CREATININE 0.7 mg/dL (0.6-1.3); MAGNESIUM 1.8 mg/dL (1.8-2.4); PHOSPHOROUS 3.9 mg/dL (2.5-4.9); POTASSIUM 3.9 mmol/L (3.5-5.1); TOTAL PROTEIN, SERUM 7.1 g/dL (6.4-8.2)
[2019-11-05] MEDS: THIAMINE HCL 100 MG TABLET PO SCH (09:17)
[2019-11-05] MEDS: MULTIVITAMINS,THERAPEUTIC TABLET PO SCH (09:18)
[2019-11-05] MEDS: ASPIRIN 81 MG TAB.CHEW PO SCH (09:18)
[2019-11-05] MEDS: FOLIC ACID 1 MG TABLET PO SCH (09:18)
[2019-11-05] MEDS: METFORMIN HCL 500 MG TABLET PO SCH ×2 (09:18→17:58)
[2019-11-05] MEDS: MUPIROCIN 2% OINT 22 GM TUBE NS SCH ×2 (09:21→21:13)
[2019-11-05] MEDS: chlorproMAZINE 25 MG TABLET PO SCH ×3 (09:28→17:58)
[2019-11-05] MEDS: CARBIDOPA/LEVODOPA 25-100MG TABLET PO SCH ×3 (09:29→17:58)
[2019-11-05 16:00] VITALS: BP 130/64
[2019-11-05] MEDS: BENZTROPINE MESYLATE 0.5 MG TABLET PO SCH (17:58)
[2019-11-05] MEDS: ACETAMINOPHEN 325 MG TABLET PO PRN (18:01)
[2019-11-05 20:00] VITALS: BP 152/80
[2019-11-05] MEDS: TRAZODONE 100 MG TABLET PO SCH (21:11)
[2019-11-05] MEDS: ATORVASTATIN 40 MG TABLET PO SCH (21:12)
[2019-11-05] MEDS: TEMAZEPAM 7.5 MG CAPSULE PO PRN (22:17)
--- NOTE | 2019-11-05 23:00 | NUR ---
received to care, asleep, in bed. pleasant upon approach, but needy, at times. compliant with medications and staff direction. PRN restoril was given at 2216, for insomnia. as of 2299, he appears asleep. no dsitress noted. will continue to monitor closely.
--- NOTE | 2019-11-06 06:00 | NUR ---
slept well. continues to sleep. no distress noted.
[2019-11-06 07:30] VITALS: BP 157/85
[2019-11-06] MEDS: ASPIRIN 81 MG TAB.CHEW PO SCH (08:08)
[2019-11-06] MEDS: CARBIDOPA/LEVODOPA 25-100MG TABLET PO SCH ×3 (08:09→16:19)
[2019-11-06] MEDS: METFORMIN HCL 500 MG TABLET PO SCH ×2 (08:09→17:16)
[2019-11-06] MEDS: FOLIC ACID 1 MG TABLET PO SCH (08:09)
[2019-11-06] MEDS: MULTIVITAMINS,THERAPEUTIC TABLET PO SCH (08:09)
[2019-11-06] MEDS: chlorproMAZINE 25 MG TABLET PO SCH ×3 (08:09→16:18)
[2019-11-06] MEDS: BENZTROPINE MESYLATE 0.5 MG TABLET PO SCH ×2 (08:09→16:18)
[2019-11-06] MEDS: Z GUARD REMEDY PASTE 57 GM TUBE TOP PRN (08:10)
[2019-11-06] MEDS: THIAMINE HCL 100 MG TABLET PO SCH (08:10)
[2019-11-06] MEDS: CLONAZEPAM 0.5 MG TABLET PO PRN (09:37)
[2019-11-06] MEDS: ACETAMINOPHEN 325 MG TABLET PO PRN ×2 (09:37→22:56)
--- NOTE | 2019-11-06 14:37 | NUR ---
Social Work Individual Therapy: community worker met with patient for brief counseling to address patients chemical dependeny. Patient was able to maintain meaningful conversation. Patient stated that he has not been drinking for two weeks. He reported that he "does not have any cravings for alcohol". This sql report writer assessed for patients understanding of the use of drugs and alcohol. Patient stated that drinking "is bad" and that it "takes your life away". community worker actively listened and provided guidance. community worker will give patient resources such as [facility]; ([phone]), [facility]; ([phone]), [facility]; ([phone]). community worker attempted to identify patients support system he was unable to identify, however; his support system is his brother Te ([phone]).
--- NOTE | 2019-11-06 14:50 | NUR ---
Received patient this am, awake ,alert . Verbalizing " I want to talk to the social secretary. I want to leave AMA. I want to get some strong drugs on the streets that work for me like Meth". Then patient said " Just kidding". The patient has been inappropriate with comments and claims to have difficulty with ADLs. This patient is ambulating in hallway without difficulty. Denies pain, Vs stable. Monitoring for any behavior escalation and for safety. No distress at this time.
[2019-11-06 16:29] VITALS: BP 155/65
[2019-11-06] MEDS: LORAZEPAM 1 MG TABLET PO PRN (16:31)
[2019-11-06] MEDS: ATORVASTATIN 40 MG TABLET PO SCH (20:25)
[2019-11-06] MEDS: TRAZODONE 100 MG TABLET PO SCH (20:25)
[2019-11-06 20:43] VITALS: BP 118/86
[2019-11-06] MEDS: TEMAZEPAM 7.5 MG CAPSULE PO PRN (21:51)
--- NOTE | 2019-11-07 00:10 | NUR ---
received to care, asleep, in bed. pleasant upon approach, but needy, at times. compliant with medications and staff direction. PRN restoril was given at 2150, for insomnia. as of now, he remains awake. no distress noted. will continue to monitor closely.
[2019-11-07] MEDS: CLONAZEPAM 0.5 MG TABLET PO PRN ×3 (00:15→20:03)
--- NOTE | 2019-11-07 00:15 | NUR ---
PRM klonopin, given for anxiety.
--- NOTE | 2019-11-07 00:45 | NUR ---
appears to be asleep. no distress noted.
--- NOTE | 2019-11-07 06:00 | NUR ---
slept 5.0 hours. continues to sleep. no distress noted.
[2019-11-07 07:30] VITALS: BP 138/82
[2019-11-07] MEDS: MULTIVITAMINS,THERAPEUTIC TABLET PO SCH (08:34)
[2019-11-07] MEDS: ASPIRIN 81 MG TAB.CHEW PO SCH (08:34)
[2019-11-07] MEDS: BENZTROPINE MESYLATE 0.5 MG TABLET PO SCH ×2 (08:34→17:53)
[2019-11-07] MEDS: THIAMINE HCL 100 MG TABLET PO SCH (08:35)
[2019-11-07] MEDS: METFORMIN HCL 500 MG TABLET PO SCH ×2 (08:35→17:53)
[2019-11-07] MEDS: CARBIDOPA/LEVODOPA 25-100MG TABLET PO SCH ×3 (08:35→17:54)
[2019-11-07] MEDS: chlorproMAZINE 25 MG TABLET PO SCH ×3 (08:35→17:54)
[2019-11-07] MEDS: ACETAMINOPHEN 325 MG TABLET PO PRN ×2 (08:35→23:20)
[2019-11-07] MEDS: FOLIC ACID 1 MG TABLET PO SCH (08:35)
[2019-11-07] MEDS: FLUOXETINE HCL 20 MG CAPSULE PO SCH (13:04)
--- NOTE | 2019-11-07 14:37 | NUR ---
Social Work Individual Counseling: delivery sales worker met with patient for brief individual therapy regarding stress management. Patient presented with chemical dependency upon admission. delivery sales worker increased awareness surrounding positive reinforcement. Patient stated that he does not use drugs or drink. He stated that he has control and does not do not do it anymore. Patient stated in the past he would become more fidgety and stressed when he wouldnt drink. Per patient, now he has control and knows what is best for him. *No group being held due to coronavirus precautions*
[2019-11-07 15:22] VITALS: BP 116/83
[2019-11-07] MEDS: ATORVASTATIN 40 MG TABLET PO SCH (20:04)
[2019-11-07 20:16] VITALS: BP 129/73
[2019-11-07] MEDS: TRAZODONE 100 MG TABLET PO SCH (20:59)
--- NOTE | 2019-11-07 22:00 | NUR ---
received to care, watching tv with peers, pleasant upon approach. continues to deny feeling suicidal. compliant with medications and staff direction. PRN klonopin was given at 2002, for anxiety, which was reported effective by patient. as of 2229, he remains awake, in day room, with peer. no distress noted. will continue to monitor closely.
[2019-11-07] MEDS: TEMAZEPAM 7.5 MG CAPSULE PO PRN (23:24)
--- NOTE | 2019-11-07 23:24 | NUR ---
PRN restoril, given for insomnia
--- NOTE | 2019-11-08 00:13 | NUR ---
appears to be asleep. no distress noted.
--- NOTE | 2019-11-08 06:00 | NUR ---
slept 5.75 hours total. continues to sleep. no distress noted.
[2019-11-08] MEDS: FOLIC ACID 1 MG TABLET PO SCH (08:34)
[2019-11-08] MEDS: MULTIVITAMINS,THERAPEUTIC TABLET PO SCH (08:34)
[2019-11-08] MEDS: METFORMIN HCL 500 MG TABLET PO SCH ×2 (08:34→17:07)
[2019-11-08] MEDS: ASPIRIN 81 MG TAB.CHEW PO SCH (08:34)
[2019-11-08] MEDS: BENZTROPINE MESYLATE 0.5 MG TABLET PO SCH ×2 (08:34→17:07)
[2019-11-08] MEDS: FLUOXETINE HCL 20 MG CAPSULE PO SCH (08:34)
[2019-11-08] MEDS: CARBIDOPA/LEVODOPA 25-100MG TABLET PO SCH ×3 (08:34→17:07)
[2019-11-08] MEDS: THIAMINE HCL 100 MG TABLET PO SCH (08:34)
[2019-11-08] MEDS: chlorproMAZINE 25 MG TABLET PO SCH ×3 (08:35→17:07)
[2019-11-08 15:12] VITALS: BP 143/82
[2019-11-08] MEDS: TRAZODONE 100 MG TABLET PO SCH (20:09)
[2019-11-08] MEDS: ATORVASTATIN 40 MG TABLET PO SCH (20:09)
[2019-11-08 20:19] VITALS: BP 138/75
[2019-11-08] MEDS: TEMAZEPAM 7.5 MG CAPSULE PO PRN (23:21)
--- NOTE | 2019-11-09 06:42 | NUR ---
Remain calm and cooperative with meds and care. resting in bed comfortably. slept 6:30 hours. continues to sleep. no distress noted.
[2019-11-09] MEDS: ACETAMINOPHEN 325 MG TABLET PO PRN ×2 (08:22→18:46)
[2019-11-09] MEDS: ASPIRIN 81 MG TAB.CHEW PO SCH (08:24)
[2019-11-09] MEDS: THIAMINE HCL 100 MG TABLET PO SCH (08:24)
[2019-11-09] MEDS: FLUOXETINE HCL 20 MG CAPSULE PO SCH (08:24)
[2019-11-09] MEDS: BENZTROPINE MESYLATE 0.5 MG TABLET PO SCH ×2 (08:24→17:02)
[2019-11-09] MEDS: MULTIVITAMINS,THERAPEUTIC TABLET PO SCH (08:24)
[2019-11-09] MEDS: METFORMIN HCL 500 MG TABLET PO SCH ×2 (08:24→17:02)
[2019-11-09] MEDS: FOLIC ACID 1 MG TABLET PO SCH (08:25)
[2019-11-09] MEDS: chlorproMAZINE 25 MG TABLET PO SCH ×3 (08:25→17:02)
[2019-11-09] MEDS: CARBIDOPA/LEVODOPA 25-100MG TABLET PO SCH ×3 (08:25→17:02)
--- NOTE | 2019-11-09 09:16 | NUR ---
Gps/Oracle Database Manager- Stayed in the activity room during breakfast, complained of headache, tylenol 650 mg po given, had been cooperative , meds. compliant, attending his group tx
[2019-11-09 15:47] VITALS: BP 147/72
--- NOTE | 2019-11-09 20:00 | NUR ---
RECEIVED PATIENT IN THE DAYROOM, HE IS A/O X3, ABLE TO AMBULATE WITH STEADY GAIT. HE IS NOTED CALM AND PLEASANT UPON APPROACHED. ABLE TO VERBALIZED FEELINGS. HE DENIED SI/HI//AH/ HE IS ABLE TO CFS. PT IS REASSURED FOR HIS SAFETY. SAFETY AND FALL PRECAUTION IN PLACE. WILL CONTINUE TO MONITOR.
[2019-11-09] MEDS: ATORVASTATIN 40 MG TABLET PO SCH (20:51)
[2019-11-09] MEDS: TRAZODONE 100 MG TABLET PO SCH (20:51)
[2019-11-09 20:57] VITALS: BP 112/83
[2019-11-09] MEDS: TEMAZEPAM 7.5 MG CAPSULE PO PRN (22:36)
[2019-11-10] MEDS: ACETAMINOPHEN 325 MG TABLET PO PRN (00:59)
[2019-11-10 07:30] VITALS: BP 146/82
[2019-11-10] MEDS: METFORMIN HCL 500 MG TABLET PO SCH ×2 (08:40→17:03)
[2019-11-10] MEDS: BENZTROPINE MESYLATE 0.5 MG TABLET PO SCH ×2 (08:40→16:15)
[2019-11-10] MEDS: FOLIC ACID 1 MG TABLET PO SCH (08:40)
[2019-11-10] MEDS: FLUOXETINE HCL 20 MG CAPSULE PO SCH (08:40)
[2019-11-10] MEDS: ASPIRIN 81 MG TAB.CHEW PO SCH (08:40)
[2019-11-10] MEDS: chlorproMAZINE 25 MG TABLET PO SCH ×3 (08:40→16:15)
[2019-11-10] MEDS: MULTIVITAMINS,THERAPEUTIC TABLET PO SCH (08:40)
[2019-11-10] MEDS: CARBIDOPA/LEVODOPA 25-100MG TABLET PO SCH ×3 (08:40→16:15)
[2019-11-10] MEDS: THIAMINE HCL 100 MG TABLET PO SCH (08:40)
--- NOTE | 2019-11-10 10:49 | NUR ---
Received patient awake in his assigned bed, alert and oriented. bed is in low and locked position. patient is able to ambulate independently with steady gait but noted with BUE tremors due to diagnosis of parkinson's disease. He is able to provide self care and ADL's independently. Patient is anxious but is cooperative and redirectable. Patient denies SI/HI, denies AH/VH. Patient is adherent with medication, no adverse reaction noted. Patient is provided with education about impulse control, verbalizes understanding. Encouraged to participate in unit groups and activities as part of the therapeutic milieu.
--- NOTE | 2019-11-10 14:10 | NUR ---
Social Work Discharge Note: Patient will be discharged to retirement facility to [facility] [address] [place] [address] ([phone]) via Ambulance transportation at 4PM. P[employer]er spoke with Anisa, Corporation Secretary at [facility]; ([phone]), who stated patient will be accepted at facility today. Patient is alert and oriented x3-4, and is not able to plan for self-care at this time, but is willing to accept care provided for her at the facility. Patient denies any suicidal or homicidal ideations. Patient is aware and agreeable with discharge plans. Patients brother Watson ([phone]) is aware and agreeable. Patient will continue to follow-up with her Psychiatrist Dr. Manley and Document Specialist Dr. Gu at [facility] [address] [place] [address] ([phone]) and will discuss smoking cessation and address substance abuse dependency. Patient was provided with outpatient mental health resources to [facility] , and the National Suicide Prevention Lifeline . Patient signed the homeless patient waiver form. Patient was provided with additional resources such as the homeless snf packet, which includes a list of emergency shelters, housing resources, drop in centers, and showers/hot meals centers. This also included the Homeless Information Hotline (479)-331-1138 or 211, [place] [facility] [employer] (877)- 171-2401, and the [facility] ([phone]. Patient was provided with a brief substance abuse intervention and referred to [facility] , [facility] , and [facility] . Patient presents with euthymic and congruent mood.
--- NOTE | 2019-11-10 14:11 | NUR ---
Social Work Firearms Report: Customer Development Representative completed and submitted a [facility] firearms report for 5250 grave disability certification. A copy of report has been placed in patient chart.
--- NOTE | 2019-11-10 14:27 | NUR ---
Social Work Coordination of Care: gang worker faxed to Anisa ([phone]) from [facility] psychiatric notes and progress notes.
--- NOTE | 2019-11-10 14:34 | NUR ---
Social Work Individual Therapy: electronics utility worker met with patient for brief counseling to address patients chemical dependency. Patient was able to maintain meaningful conversation and stated that he was excited to be discharged today. He said that he would follow up with the resources that this worker has provided and stated that he longer will drink. electronics utility worker actively listened and provided guidance. electronics utility worker will give patient resources such as [facility]; ([phone]), [facility]; ([phone]), [facility]; ([phone]). electronics utility worker attempted to identify patients support system he was unable to identify, however; his support system is his brother.
[2019-11-10 16:00] VITALS: BP 132/65
--- NOTE | 2019-11-10 16:09 | NUR ---
Social Work Coordination of Care: early childhood education worker faxed to Anisa ([phone]) from [facility] patients [facility] psychiatric notes and progress notes.
--- NOTE | 2019-11-10 18:10 | NUR ---
Discharge Note: Patient discharged in stable condition to [facility]. Picked up by nonemergency ambulance EMT, transported off unit in a gurney, accompanied by RN without adverse event. Patient's belongings inventoried and returned to patient. Patient denies suicidal and homicidal ideation. Patient provided with discharge instructions, follow up care with physician, discharge prescriptions, and education about medications. He is able to verbalize understanding of education provided.
== END 2019-11-10 18:15 | DRG 885 ==
LOC: ER 16:36 → GPS 17:55 → MEDSURG3 11-01 10:23 → GPSOV3 11-01 10:30 → GPS 11-04 11:59
PROVIDERS: ADMIT Psychiatry & Neurology Psychiatry; ATTEND Internal Medicine
DX: F25.9 Schizoaffective disorder, unspecified (principal); F01.50 Vascular dementia, unspecified severity, without behavioral disturbance, psychotic disturbance, mood disturbance, and anxiety; D68.59 Other primary thrombophilia; G20 Parkinson's disease; I69.398 Other sequelae of cerebral infarction; Z91.5 Personal history of self-harm; R26.9 Unspecified abnormalities of gait and mobility; F41.9 Anxiety disorder, unspecified; E11.9 Type 2 diabetes mellitus without complications; F32.9 Major depressive disorder, single episode, unspecified; M62.81 Muscle weakness (generalized); F19.10 Other psychoactive substance abuse, uncomplicated; F10.10 Alcohol abuse, uncomplicated; Z79.84 Long term (current) use of oral hypoglycemic drugs; Z74.09 Other reduced mobility; I10 Essential (primary) hypertension
CPT/HCPCS: 36415; 71045; 74018; 83735; 84100; 84443; 85025; 90686; 90732; 93005; A4663; Q0161